=== PATIENT | female | born 1945 | race Caucasian/White ===

== ENCOUNTER 2017-12-03 18:58 | Emergency (ER) | payer SELFPAY ==
[~2017-12-03] VITALS: Ht 167.6 cm; Wt 62.0 kg
[2017-12-03 19:22] VITALS: BP 94/52; PULSE 73; RESP 18; TEMP 98.2; O2SAT 93
[2017-12-03] MEDS ORDERED: CLOP75TA PO (19:48)
[2017-12-03] MEDS ORDERED: SITA1TAB2 PO (19:48)
[2017-12-03] MEDS ORDERED: ISOS60TA PO (19:48)
[2017-12-03] MEDS ORDERED: TOPI200T7 PO (19:48)
[2017-12-03] MEDS ORDERED: SPIR25TA PO (19:48)
[2017-12-03] MEDS ORDERED: OMEP40CA2 (19:48)
[2017-12-03] MEDS ORDERED: ASPI-516 CHEW (19:48)
[2017-12-03] MEDS ORDERED: METO-393 PO (19:48)
[2017-12-03] MEDS ORDERED: SACU1TAB PO (19:48)
[2017-12-03] MEDS ORDERED: [UNRECOGNIZED DRUG - CODE] PO (19:48)
[2017-12-03] MEDS ORDERED: TYLE325T PO (19:48)
[2017-12-03] MEDS ORDERED: CETI10 PO (19:48)
[2017-12-03] MEDS ORDERED: WARF-23 PO (19:48)
[2017-12-03] MEDS ORDERED: DULO1CAP3 PO (19:48)
[2017-12-03] MEDS ORDERED: LIDOCAINE 1%/EPINEPHrine 1:100,000 SOLN 20 ML VIAL INFIL ONE (20:00)
[2017-12-03] MEDS ORDERED: TETANUS/DIPHTHERIA TOXOID ADULT 0.5 ML VIAL IM ONE (20:00)
--- NOTE | 2017-12-03 20:03 | PD ---
HPI Chief Complaint: Laceration/Skin Injury Time Seen by Provider: 19:51 Travel History International Travel<30 days: No Contact w/Intl Traveler<30days: No Traveled to known affect area: No History of Present Illness HPI This is a 72-year-old female who presents via EMS for evaluation after mechanical fall. Prior to arrival the patient tripped in a parking lot and fell , hitting her face against the ground. No loss of consciousness. She is complaining of facial pain, intraoral laceration, chin laceration as well as relations to the right knee, left hand. Denies neck or back pain, chest pain, shortness of breath, abdominal pain, headache. Last tetanus vaccination unknown. Patient is on Coumadin. Currently on vacation from [place]. No other complaints at this time. PFSH Past Medical History Hx Anticoagulant Therapy: Yes (COUMADIN ) Cardiac Catheterization: Yes Congestive Heart Failure: Yes Diabetes: Yes Patient Takes Glucophage: No Myocardial Infarction: Yes Past Surgical History Coronary Stent: Yes Pacemaker: Yes (MEDTRONIC ) Other Surgery: Yes (PACEMAKER/DEFIB ) Social History Alcohol Use: Yes Tobacco Use: No Substance Use: No Allergies-Medications (Allergen,Severity, Reaction): Coded Allergies: heparin (Verified Allergy, Unknown, 12/03/17) Reported Meds & Prescriptions Reported Meds & Active Scripts Active Amoxicillin 875 Mg Tab 875 Mg PO BID 5 Days Reported Dofetilide 250 Mcg Cap 250 Mcg PO BID For Creatinine Clearance 40-60 mL/min Omeprazole 40 Mg Cap 40 Mg DAILY Januvia (Sitagliptin Phosphate) 100 Mg Tab 100 Mg PO DAILY Metoprolol Succinate ER 24 HR (Metoprolol Succinate) 200 Mg Tab 200 Mg PO DAILY Clopidogrel (Clopidogrel Bisulfate) 75 Mg Tab 75 Mg PO DAILY Topiramate 200 Mg Tab 100 Mg PO BID Warfarin 5 Mg Tab 5 Mg PO DAILY Aspirin 81 Mg Chew 81 Mg CHEW DAILY Cetirizine (Cetirizine HCl) 10 Mg Tab 10 Mg PO DAILY Duloxetine DR (Duloxetine HCl) 60 Mg Capdr 60 Mg PO BID Entresto (Sacubitril-Valsartan) 24-26 Mg Tab 1 Tab PO BID Isosorbide Mononitrate ER (Isosorbide Mononitrate) 60 Mg Tab 60 Mg PO DAILY Tylenol (Acetaminophen) 325 Mg Tab 500 Mg PO ONCE PRN Spironolactone 25 Mg Tab 25 Mg PO DAILY Review of Systems Except as stated in HPI: all other systems reviewed are Neg Physical Exam Narrative GENERAL: Well-developed well-nourished female no acute distress SKIN: Warm and dry. 1.5 cm jagged laceration noted to the chin. Abrasions and contusions noted to the right knee, left hand, left arm. HEAD: Atraumatic. Normocephalic. EYES: Pupils equal and round. No scleral icterus. No injection or drainage. ENT: No nasal bleeding or discharge. Mucous membranes pink and moist. There is a 2-3 cm laceration to the inner mucosa of the lower lip adjacent to the gumline. NECK: Trachea midline. No JVD. CARDIOVASCULAR: Regular rate and rhythm. No murmur appreciated. RESPIRATORY: No accessory muscle use. Clear to auscultation. Breath sounds equal bilaterally. GASTROINTESTINAL: Abdomen soft, non-tender, nondistended. Hepatic and splenic margins not palpable. MUSCULOSKELETAL: Some soft tissue swelling and abrasions noted to the anterior right knee. Associated tenderness to palpation to the prepatellar region. The patient maintains full range of motion of the extremities. There is no tenderness to palpation along the spine. NEUROLOGICAL: Awake and alert. No obvious cranial nerve deficits. Motor grossly within normal limits. Normal speech. PSYCHIATRIC: Appropriate mood and affect; insight and judgment normal. Data Data Last Documented VS Vital Signs Date Time Temp Pulse Resp B/P (MAP) Pulse Ox O2 Delivery O2 Flow Rate FiO2 12/03/17 19:22 98.2 73 18 94/52 (66) 93 Orders Orders Tetanus/Diphtheria Tox Adult (Tetanus/Di (12/03/17 20:00) Lidocai-Epi 1%-1:100,000 Inj (Xylocaine- (12/03/17 20:00) Prothrombin Time / Inr (Pt) (12/03/17 20:00) Ct Brain W/O Iv Contrast(Rout) (12/03/17 ) Ct Facial Bones W/O Iv Cont (12/03/17 ) Knee, Complete (4vws) (12/03/17 ) Lidocai-Epi 1%-1:100,000 Inj (Xylocaine- (12/03/17 20:33) Ed Discharge Order (12/03/17 21:22) Labs Laboratory Tests Test 12/03/17 20:07 Prothrombin Time 22.5 SEC Prothromb Time International Ratio 2.2 RATIO MDM Medical Decision Making Medical Screen Exam Complete: Yes Emergency Medical Condition: Yes Medical Record Reviewed: Yes Differential Diagnosis Laceration, fracture, intracranial hemorrhage Narrative Course CT imaging and knee x-ray imaging revealed no acute normalities. Tetanus status updated. The lacerations were repaired with sutures, she verbally consented. She is stable for discharge. Discharge with a short course of amoxicillin. Because the intraoral wound abuts her gumline I advised that she not wear her lower dentures and follow-up with her dentist upon returning home to [place]. Procedures Procedure Narrative LACERATION LOCATION: Chin LENGTH: 1.5 cm NUMBER OF STITCHES/LAMONT: 5 REPAIR: The area of the laceration was prepped with Betadine and sterilely draped. The laceration was infiltrated with 1% lidocaine with epinephrine. The wound was copiously irrigated and explored without evidence of foreign body , tendon injury or neurovascular injury. The wound was closed using 6-0 Prolene simple interrupted. This was a single layer repair. A sterile dressing was applied. The patient was advised to keep the dressing clean and dry. Patient tolerated the procedure well. LACERATION LOCATION: Mouth LENGTH: 2 cm NUMBER OF STITCHES/LAMONT:9 REPAIR: The area of the laceration was prepped with Betadine and sterilely draped. The laceration was infiltrated with 1% lidocaine with epinephrine. The wound was copiously irrigated and explored without evidence of foreign body , tendon injury or neurovascular injury. The wound was closed using 5-0 fast absorbing chromic simple interrupted. This was a single layer repair. A sterile dressing was applied. The patient was advised to keep the dressing clean and dry. Patient tolerated the procedure well. Additional Instructions: Medication as prescribed. Wash the wound on the face gently with soap and water and apply antibiotic cream twice a day. Follow-up with your dentist. Monitor INR closely while on amoxicillin. Return for any emergent medical conditions. Med/Other Pt SpecificInfo: Prescription(s) given, Wound Care Scripts Amoxicillin (Amoxicillin) 875 Mg Tab 875 MG PO BID for Infection for 5 Days, #10 TAB 0 Refills Prov: Richmond Colon MD 12/03/17 Disposition: 01 DISCHARGE HOME Condition: Stable Heladio Loza Dec 03, 2017 20:03
[2017-12-03 20:31] LABS: INTERNATIONAL NORMALIZED RATIO 2.2 RATIO; PROTHROMBIN TIME - PATIENT 22.5 SEC (9.8-11.6)
[2017-12-03] MEDS ORDERED: LIDOCAINE 1%/EPINEPHrine 1:100,000 SOLN 30 ML VIAL ONE (20:33)
--- NOTE | 2017-12-03 20:37 | RADRPT ---
EXAM DATE/TIME: 12/03/2017 20:16 [facility] COMPARISON: No previous studies available for comparison. INDICATIONS : Anterior abrasion right anterior knee, fell MEDICAL HISTORY : SURGICAL HISTORY : None. ENCOUNTER: Initial ACUITY: 1 day PAIN SCORE: 0/10 LOCATION: Right Knee FINDINGS: Bones of the right knee are intact and normally aligned. No perceptible joint effusion. There is prep atellar soft tissue swelling. No radiopaque foreign body. Evidence of previous saphenous vein harvest. CONCLUSION: Intact right knee. Prepatellar soft tissue swelling. No foreign body. Julius Schroeder MD on December 03, 2017 at 20:35 Board Certified Radiologist. This report was verified electronically.
--- NOTE | 2017-12-03 20:53 | RADRPT ---
EXAM DATE/TIME: 12/03/2017 20:26 [facility] COMPARISON: No previous studies available for comparison. INDICATIONS : Head pain due to fall. RADIATION DOSE: 48.53 CTDIvol (mGy) MEDICAL HISTORY : Cardiovascular disease. SURGICAL HISTORY : None. ENCOUNTER: Initial ACUITY: 1 day PAIN SCALE: 7/10 LOCATION: Bilateral cranial TECHNIQUE: Multiple contiguous axial images were obtained of the head. Using automated exposure control and adj ustment of the mA and/or kV according to patient size, radiation dose was kept as low as reasonably a chievable to obtain optimal diagnostic quality images. DICOM format image data is available electro nically for review and comparison. FINDINGS: CEREBRUM: The ventricles are normal for age. No evidence of midline shift, mass lesion, hemorrhage or acute in farction. No extra-axial fluid collections are seen. POSTERIOR FOSSA: The cerebellum and brainstem are intact. The 4th ventricle is midline. The cerebellopontine angle i s unremarkable. EXTRACRANIAL: The visualized portion of the orbits is intact. SKULL: The calvaria is intact. No evidence of skull fracture. CONCLUSION: Negative noncontrast head CT. Julius Schroeder MD on December 03, 2017 at 20:51 Board Certified Radiologist. This report was verified electronically.
--- NOTE | 2017-12-03 20:54 | RADRPT ---
EXAM DATE/TIME: 12/03/2017 20:29 [facility] COMPARISON: No previous studies available for comparison. INDICATIONS : Bilateral facial pain to chin due to fall. RADIATION DOSE: 56.76 CTDIvol (mGy) MEDICAL HISTORY : Cardiovascular disease. SURGICAL HISTORY : None. ENCOUNTER: Initial ACUITY: 1 day PAIN SCORE: 7/10 LOCATION: Bilateral chin region. TECHNIQUE: Volumetric scanning of the facial bones was performed. Using automated exposure control and adjustme nt of the mA and/or kV according to patient size, radiation dose was kept as low as reasonably achiev able to obtain optimal diagnostic quality images. DICOM format image data is available electronicEuro Card [place] y for review and comparison. FINDINGS: ORBITS: The orbital and infraorbital osseous structures are intact. The retroconal structures have a normal configuration. No radiopaque foreign bodies are seen. NASAL BONE: The nasal bone and maxillary spine are intact ZYGOMATIC ARCHES: Symmetric without evidence of fracture. SINUSES: The maxillary, ethmoid and frontal sinuses are intact. No air-fluid levels seen. NASAL CAVITY: The nasal septum is intact and midline. The lacrimal ducts are intact. SOFT TISSUES: No radiopaque foreign bodies seen. No soft-tissue swelling is seen. INTRACRANIAL: No intracranial air seen. CRIBIFORM PLATE: Grossly intact. CONCLUSION: Intact facial bones. Julius Schroeder MD on December 03, 2017 at 20:52 Board Certified Radiologist. This report was verified electronically.
[2017-12-03] MEDS ORDERED: AMOX875T PO ×3 (21:15→21:21)
--- NOTE | 2017-12-03 22:08 | PD ---
Data Data Last Documented VS Vital Signs Date Time Temp Pulse Resp B/P (MAP) Pulse Ox O2 Delivery O2 Flow Rate FiO2 12/03/17 19:22 98.2 73 18 94/52 (66) 93 Orders Orders Tetanus/Diphtheria Tox Adult (Tetanus/Di (12/03/17 20:00) Lidocai-Epi 1%-1:100,000 Inj (Xylocaine- (12/03/17 20:00) Prothrombin Time / Inr (Pt) (12/03/17 20:00) Ct Brain W/O Iv Contrast(Rout) (12/03/17 ) Ct Facial Bones W/O Iv Cont (12/03/17 ) Knee, Complete (4vws) (12/03/17 ) Lidocai-Epi 1%-1:100,000 Inj (Xylocaine- (12/03/17 20:33) Ed Discharge Order (12/03/17 21:22) Labs Laboratory Tests Test 12/03/17 20:07 Prothrombin Time 22.5 SEC Prothromb Time International Ratio 2.2 RATIO [facility] Supervised Visit with ELIUD: No Diagnosis Primary Impression: Laceration of face Additional Instruction: Medication as prescribed. Wash the wound on the face gently with soap and water and apply antibiotic cream twice a day. Follow-up with your dentist. Monitor INR closely while on amoxicillin. Return for any emergent medical conditions. Med/Other Pt SpecificInfo: Prescription(s) given Scripts Amoxicillin (Amoxicillin) 875 Mg Tab 875 MG PO BID for Infection for 5 Days, #10 TAB 0 Refills Prov: Richmond Colon MD 12/03/17 Disposition: 01 DISCHARGE HOME Condition: Stable Richmond Colon MD Dec 03, 2017 22:08
== END 2017-12-03 22:24 | disposition home or self-care (01) ==
LOC: NEPD 18:58
DX: S01.511A Laceration without foreign body of lip, initial encounter (principal); S01.81XA Laceration without foreign body of other part of head, initial encounter; I50.9 Heart failure, unspecified; E11.9 Type 2 diabetes mellitus without complications; I25.2 Old myocardial infarction; W01.0XXA Fall on same level from slipping, tripping and stumbling without subsequent striking against object, initial encounter; Y92.481 Parking lot as the place of occurrence of the external cause; Z23 Encounter for immunization; Z79.01 Long term (current) use of anticoagulants
CPT/HCPCS: 12013; 70450; 70486; 73564; 85610; 90471; 90714